=== PATIENT | female | born 1995 | race Caucasian/White ===

== ENCOUNTER 2021-04-16 12:02 | Emergency (ER) | payer OTHER ==
[~2021-04-16] VITALS: Ht 165.1 cm; Wt 66.2 kg
[2021-04-16] MEDS ORDERED: FAMOTIDINE 20 MG TABLET ONE (12:20)
[2021-04-16] MEDS ORDERED: DIPHENHYDRAMINE 25 MG CAPSULE ONE (12:21)
[2021-04-16] MEDS ORDERED: DIPHENHYDRAMINE 25 MG CAPSULE PO ONE (12:30)
[2021-04-16] MEDS ORDERED: FAMOTIDINE 20 MG TABLET PO ONE (12:30)
--- NOTE | 2021-04-16 13:43 | NUR ---
PT RESTING ON GURNEY W/ CALL LIGHT IN REACH AND SIDE RAILS UPX2. FAMILY AT BEDSIDE. BETH GORMAN.
[2021-04-16 15:09] VITALS: BP 111/63
--- NOTE | 2021-04-16 15:11 | NUR ---
Patient given discharge instructions and they have confirmed that they understand the instructions. Patient ambulatory with steady gait.
== END 2021-04-16 15:19 | disposition home or self-care (01) ==
LOC: ED 15:00
DX: T78.40XA Allergy, unspecified, initial encounter (principal); R07.89 Other chest pain
CPT/HCPCS: 99283; Q0163

== ENCOUNTER 2021-04-17 13:36 | Outpatient (CLI) | payer OTHER | END 2021-04-17 23:59 | disposition home or self-care (01) | LOC: RAD 13:36 | PROVIDERS: ATTEND Physician Assistant | DX: R41.0 Disorientation, unspecified (principal); R25.1 Tremor, unspecified; J34.89 Other specified disorders of nose and nasal sinuses; J32.9 Chronic sinusitis, unspecified | CPT/HCPCS: 70450 ==

== ENCOUNTER 2021-05-01 20:47 | Emergency (ER) | payer MEDICAID, OTHER ==
[~2021-05-01] VITALS: Ht 165.1 cm; Wt 67.0 kg
[2021-05-01 21:11] LABS: MICROSCOPIC NOT IND
[2021-05-01 21:12] LABS: BASOPHILS % (AUTO) 0 % (0-1); EOSINOPHILS % (AUTO) 1 % (1-7); LYMPHOCYTES % (AUTO) 10 % (22-44); MEAN CORPUSCULAR HGB CONC 34.1 g/dL (32.4-35.8); MEAN PLATELET VOLUME 7.5 fL (7.4-10.4); MONOCYTES % (AUTO) 4 % (2-9); NEUTROPHILS % (AUTO) 85 % (42-75); PLATELET COUNT 351 x10^3/uL (130-400); RED CELL DISTRIBUTION WIDTH 12.8 % (9.6-15.2)
[2021-05-01 21:23] LABS: ALANINE AMINOTRANSFERASE 19 U/L (12-78); ALBUMIN 3.7 g/dL (3.4-5.0); ANION GAP 7 mmol/L (5-15); CHLORIDE 105 mmol/L (98-107); CREATININE 0.84 mg/dL (0.55-1.02)
[2021-05-01 21:27] LABS: ALKALINE PHOSPHATASE 62 U/L (45-117); BILIRUBIN,TOTAL 1.4 mg/dL (0.2-1.0); TOTAL PROTEIN 7.9 g/dL (6.4-8.2)
[2021-05-01] MEDS ORDERED: MORPHINE SULFATE 4 MG/ML, 1ML IVPush PRN (21:30)
[2021-05-01] MEDS ORDERED: ONDANSETRON 2MG/ML, 2ML IVPush ONE (21:30)
--- NOTE | 2021-05-01 21:30 | NUR ---
PT. AMBULATORY TO ROOM FROM LOBBY. TO ED WITH C/O N/V/D AND CENTRAL ABD PAIN X 8 HOURS. DENIES HX OF SAME OR ANY SX HX. ALSO C/O BILAT FLANK PAIN.
[2021-05-01] MEDS ORDERED: MORPHINE SULFATE 4 MG/ML, 1ML ONE (21:49)
[2021-05-01] MEDS ORDERED: ONDANSETRON 2MG/ML, 2ML ONE (21:49)
--- NOTE | 2021-05-01 22:00 | NUR ---
MAGED SOLOMON, MEDICATED PER OCT, TO CT VIA [facility] .
[2021-05-01] MEDS ORDERED: OMNIPAQUE 350 MG/ML, 100ML BOTTLE ONE (22:05)
[2021-05-01 23:32] VITALS: BP 115/66
== END 2021-05-01 23:39 | disposition home or self-care (01) ==
LOC: ED 21:41
DX: A08.4 Viral intestinal infection, unspecified (principal)
CPT/HCPCS: 36415; 74177; 80053; 81003; 83690; 84703; 85025; 96374; 96375; 99285; J2270; J2405; Q9967

== ENCOUNTER 2021-05-05 12:31 | Emergency (ER) | payer OTHER ==
[~2021-05-05] VITALS: Ht 172.7 cm; Wt 66.8 kg
[2021-05-05 13:24] LABS: BASOPHILS % (AUTO) 1 % (0-1); EOSINOPHILS % (AUTO) 1 % (1-7); LYMPHOCYTES % (AUTO) 35 % (22-44); MEAN CORPUSCULAR HGB CONC 33.9 g/dL (32.4-35.8); MEAN PLATELET VOLUME 7.6 fL (7.4-10.4); MONOCYTES % (AUTO) 8 % (2-9); NEUTROPHILS % (AUTO) 56 % (42-75); PLATELET COUNT 370 x10^3/uL (130-400); RED BLOOD COUNT 4.44 x10^6/uL (3.82-5.3); RED CELL DISTRIBUTION WIDTH 12.4 % (9.6-15.2)
[2021-05-05 13:33] LABS: ANION GAP 6 mmol/L (5-15); CALCIUM 8.7 mg/dL (8.5-10.1); CHLORIDE 109 mmol/L (98-107)
[2021-05-05 13:34] LABS: ALANINE AMINOTRANSFERASE 27 U/L (12-78); ALBUMIN 3.8 g/dL (3.4-5.0)
[2021-05-05 13:38] LABS: ALKALINE PHOSPHATASE 60 U/L (45-117); BILIRUBIN,TOTAL 0.5 mg/dL (0.2-1.0); TOTAL PROTEIN 7.8 g/dL (6.4-8.2)
[2021-05-05 13:48] LABS: MICROSCOPIC NOT IND
[2021-05-05] MEDS ORDERED: ONDANSETRON 2MG/ML, 2ML ONE (16:56)
[2021-05-05] MEDS ORDERED: ONDANSETRON 2MG/ML, 2ML IVPush ONE (17:00)
[2021-05-05] MEDS ORDERED: SODIUM CHLORIDE 0.9% 1,000ML IVBOLUS ONE (17:00)
[2021-05-05] MEDS ORDERED: SODIUM CHLORIDE FLUSH 10ML SYR IVF ONE (17:00)
--- NOTE | 2021-05-05 17:08 | NUR ---
ermd Sahm at bedside for eval
[2021-05-05 18:06] VITALS: BP 119/60
--- NOTE | 2021-05-05 18:14 | NUR ---
DC INSTRUCTIONS REVIEWED
== END 2021-05-05 18:42 | disposition home or self-care (01) ==
LOC: ED 13:09
DX: K52.9 Noninfective gastroenteritis and colitis, unspecified (principal); Z20.822 Contact with and (suspected) exposure to COVID-19
CPT/HCPCS: 36415; 80053; 81003; 84703; 85025; 96361; 96374; 99283; J2405; J7030; U0003; U0005